=== PATIENT | male | born 1955 | race Caucasian/White ===

== ENCOUNTER → 2019-11-03 | Outpatient (CLI) | payer BC ==
--- NOTE | 2019-11-03 08:14 | US ---
EXAMINATION TYPE: US venous doppler duplex LE DATE OF EXAM: 11/03/2019 7:41 AM COMPARISON: NONE CLINICAL HISTORY: I80.299 Phlebitis Thrombophlebitis of lower extr. SIDE PERFORMED: Bilateral TECHNIQUE: The lower extremity deep venous system is examined utilizing real time linear array sonog rosalio with graded compression, doppler sonography and color-flow sonography. VESSELS IMAGED: External Iliac Vein (EIV) Common Femoral Vein Deep Femoral Vein Greater Saphenous Vein * Femoral Vein Popliteal Vein Small Saphenous Vein * Proximal Calf Veins (* superficial vessels) Grayscale, color doppler, spectral doppler imaging performed of the deep veins of the lower extremiti es. There is normal flow, compressibility, vascular waveforms. Right Leg: Negative for DVT Left Leg: Negative for DVT IMPRESSION: No sonographic evidence of deep venous thrombosis in either the visualized bilateral low er extremities.
== END | disposition home or self-care (01) ==
LOC: RADUSWWP 07:18
PROVIDERS: ATTEND Family Medicine
DX: I80.299 Phlebitis and thrombophlebitis of other deep vessels of unspecified lower extremity (principal)
CPT/HCPCS: 93970

== ENCOUNTER → 2022-09-14 | Outpatient (CLI) | payer MEDICARE, BC ==
[2022-09-14 13:42] LABS: African American GFR (CKD) >90 (>60 ml/min/1.73 sqM); Blood Urea Nitrogen 19 mg/dL (9-20); Non-African American GFR(CKD) >90 (>60 ml/min/1.73 sqM)
--- NOTE | 2022-09-14 14:54 | CT ---
EXAMINATION TYPE: CT angio thor/abd pel aorta CT DLP: 3045.0 mGycm, Automated exposure control for dose reduction was used. DATE OF EXAM: 09/14/2022 2:11 PM COMPARISON: CT chest abdomen pelvis 03/24/2013. CLINICAL INDICATION:Male, 66 years old with history of CAD; PHH, Follow up of aortic aneurysm TECHNIQUE: Dissection protocol: Multiple axial CT images of the chest, abdomen were obtained prior an d to the administration of IV contrast. 3-D reformats and maximum intensity projection format were pe rformed on a separate workstation. Contrast used:100 mL of Isovue 370 without and with IV Contrast, Oral contrast used: without Oral Contrast FINDINGS: ARTERIAL VASCULATURE: The aorta is normal in course. Ectasia of the ascending thoracic aorta measurin g up to 3.8 cm. No evidence of intramural hematoma. There is no evidence of aortic dissection, aneury sm or acute aortic injury. Great arch vessels patent and normal in course and caliber. No abdominal a ortic aneurysm. Mild atelectatic calcification of the abdominal aorta. The bilateral renal arteries a re widely patent. There are 2 right and left renal arteries. The SMA and celiac axis are patent. Mild stenosis of the origin of the celiac axis secondary to calcified plaque. PULMONARY ARTERIAL VASCULATURE: Mild dilated measuring 3.7 cm in diameter. This can be seen setting o f pulmonary arterial hypertension. No pulmonary embolism identified. Lungs/pleura: No pleural effusion, pneumothorax, or focal consolidation. Calcific granuloma within th e left upper lobe. Intrafissural lymph node along the right minor fissure stable and benign. Heart: Mildly prominent size. No pericardial effusion. Post CABG changes. Mediastinum: No gross evidence of adenopathy. Lower Neck: No significant findings. Abdomen: Liver: Unremarkable. Gallbladder and Bile ducts: Post cholecystectomy.. Pancreas: Unremarkable. Spleen: Unremarkable. Adrenal glands: Unremarkable. Kidneys and Ureters: Unremarkable. No hydronephrosis. Stomach and Bowel: Colonic diverticulosis without evidence for acute diverticulitis. No evidence of bowel obstruction. Peritoneum: No evidence of pneumoperitoneum, free fluid, or adenopathy. Abdominal wall/soft tissues: Bilateral gynecomastia partially visualized.. Musculoskeletal: The osseous structures appear intact. Median sternotomy wires. Multilevel degenerati ve changes of the visualized spine. IMPRESSION: 1. Stable ectasia of the ascending thoracic aorta measuring up to 3.8 cm. No abdominal aortic aneurys m. 2. Colonic diverticulosis without evidence for acute diverticulitis.
== END | disposition home or self-care (01) ==
LOC: RADCTMAIN 12:25
PROVIDERS: ATTEND Internal Medicine Cardiovascular Disease
DX: I25.10 Atherosclerotic heart disease of native coronary artery without angina pectoris (principal); K57.30 Diverticulosis of large intestine without perforation or abscess without bleeding; I77.810 Thoracic aortic ectasia
CPT/HCPCS: 82565; 84520; 71275; 36415; 74174; Q9967

== ENCOUNTER 2023-10-01 22:28 | Inpatient (IN) | payer MEDICARE, BC ==
--- NOTE | 2023-10-01 22:49 | ED ---
Chest Pain HPI - General Source: patient, RN notes reviewed Mode of arrival: wheelchair <Bala Stone - Last Filed: 10/01/23 22:49> - General Source: patient, RN notes reviewed, old records reviewed <Bernardino Posey - Last Filed: 10/02/23 03:15> - General Chief Complaint: Chest Pain Stated Complaint: chest pain Time Seen by Provider: 10/01/23 22:43 - History of Present Illness Initial Comments: 67-year-old male presents to the ED with chief complaint of chest pain. Patient reports an hour and a half ago while was eating dinner started to experience pain in the left side of his chest radiating to his left shoulder. Notes some associated nausea and sweating with this as well. (Bala Stone) Patient is a 67-year-old male with past medical history remarkable for CABG, diabetes, hypertension, hyperlipidemia, who is chronically on 2 L nasal cannula oxygen at home presents emergency department for chest pain. Also sounds like he has a history of CHF as he does require sleeping sitting upright at night. States that earlier today he began having sharp chest pain developed left side of his chest with radiation towards left shoulder and left jaw. This occurred approximately 2 hours ago. Has resolved at this point but required nitro to r esolve it. Has no other acute complaints at this time. States he felt diaphoretic when he was present. No nausea or vomiting. No abdominal pain. Endorses cough with no significant sputum. Endorses chronic orthopnea, PND. Has noticed worsening swelling in his bilateral lower extremities. Presents for further evaluation at this time. Originally seen as a quick note. I evaluated patient when he was placed in a room. (Bernardino Posey) - Related Data Allergies Allergy/AdvReac Type Severity Reaction Status Date / Time No Known Allergies Allergy Verified 10/01/23 22:35 Review of Systems ROS Other: All systems not noted in ROS Statement are negative. <Bala Stone - Last Filed: 10/01/23 22:49> ROS Other: All systems not noted in ROS Statement are negative. <Bernardino Posey - Last Filed: 10/02/23 03:15> ROS Statement: Those systems with pertinent positive or pertinent negative responses have been documented in the HPI. Review of Systems: CONST: Denies fever EYES: Denies blurry vision ENT: Denies nasal congestion C/V: Endorses resolved chest pain RESP: Denies shortness of breath GI: Denies abdominal pain : Denies dysuria SKIN: Denies rash. MSK: Denies joint pain. NEURO: Denies headache (Bernardino Posey) EKG Findings - EKG Comments: EKG Findings:: 12-lead Electrocardiogram Interpretation Note. EKG was reviewed and interpreted by myself. 12-lead ECG performed at 2239 is interpreted by me as revealing sinus bradycardia at a rate of 58 beats per minute. [place] is normal. MT interval is 161 ms, QRS duration is 86 ms, QTc is 418 ms.. There were no ST or T wave abnormalities to suggest myocardial ischemia or injury. R wave progression across the precordium was delayed. By my interpretation this EKG is non-diagnostic for acute ischemia. - EKG Results: EKG: interpreted by ERMD <Bernardino Posey - Last Filed: 10/02/23 03:15> Past Medical History Past Medical History: Coronary Artery Disease (CAD), Chest Pain / Angina, Diabetes Mellitus, Hyperlipidemia, Hypertension History of Any Multi-Drug Resistant Organisms: None Reported Past Surgical History: Cholecystectomy, Coronary Bypass/CABG Past Psychological History: No Psychological Hx Reported Smoking Status: Never smoker Past Alcohol Use History: None Reported Past Drug Use History: None Reported <Bala Stone - Last Filed: 10/01/23 22:49> General Exam <Bala Stone - Last Filed: 10/01/23 22:49> <Bernardino Posey - Last Filed: 10/02/23 03:15> - General Exam Comments Initial Comments: Visual Physical Exam Vital signs reviewed General: Well-appearing, nontoxic, no acute distress. Head: Normocephalic, atraumatic Eyes: PERRLA, EOMI ENT: Airway patent Chest: Nonlabored breathing Skin: No visual rash, normal skin tone Neuro: Alert and oriented 3 Musculoskeletal: No gross abnormalities (Bala Stone) General: Appears in no acute distress. HEAD: Normal with no signs of head trauma. EYES: PERRLA, EOMI, conjunctiva normal, no discharge. ENT: Hearing grossly intact, normal oropharynx. RESPIRATORY: Clear breath sounds bilaterally. No wheezes, rales, or rhonchi. On chronic 2 L nasal cannula oxygen. C/V: Regular rate and rhythm. S1 and S2 auscultated, significant lower extremity pitting edema, peripheral pulses 2+ and intact throughout ABD: Abd is soft, nontender, nondistended EXT: Normal range of motion, no obvious deformity SKIN: No rashes or lesions observed on exposed skin. NEURO: Alert and oriented x 4. (Bernardino Posey) Course Vital Signs 10/01/23 10/01/23 10/02/23 22:30 23:34 02:00 Temperature 99.8 F H 97.7 F Pulse Rate 66 60 Respiratory 18 20 Rate Blood Pressure 141/85 128/79 O2 Sat by Pulse 93 L 94 L Oximetry Chest Pain MDM <Bala Stone - Last Filed: 10/01/23 22:49> <Bernardino Posey - Last Filed: 10/02/23 03:15> - MDM Quicknote portion performed. Signed Bala Stone PA-C (Bala Stone) Was pt. sent in by a medical professional or institution (Dr. PA, ATHLETIC EQUIPMENT CUSTODIAN, urgent care, hospital, or fci...) When possible be specific @ -No Did you speak to anyone other than the patient for history (EMS, parent, family, police, friend...)? What history was obtained from this source @ -No Did you review nursing and triage notes (agree or disagree)? Why? @ -I reviewed and agree with nursing and triage notes Were old charts reviewed (outside hosp., previous admission, EMS record, old EKG, old radiological studies, urgent care reports/EKG's, fci records)? Report findings @ [place] reviewed Differential Diagnosis (chest pain, altered mental status, abdominal pain women, abdominal pain men, vaginal bleeding, weakness, fever, dyspnea, syncope, headache, dizziness, GI bleed, back pain, seizure, CVA, palpatations, mental health, musculoskeletal)? @ -Differential Chest Pain: Stable Angina, Unstable Angina, STEMI, NSTEMI Aortic Dissection, Pneumothorax, Musculoskeletal, Esophageal Spasm GERD, Cholecystitis, Pancreatitis, Zoster, this is not meant to be an all-inclusive list. EKG interpreted by me (3pts min.). @ -As above X-rays interpreted by me (1pt min.). @ -X-ray shows no obvious acute cardiopulmonary process. CT interpreted by me (1pt min.). @ -None done U/S interpreted by me (1pt. min.). @ -None done What testing was considered but not performed or refused? (CT, X-rays, U/S, labs)? Why? @ -None What meds were considered but not given or refused? Why? @ -None Did you discuss the management of the patient with other professionals (professionals i.e. DrSonia, PA, ATHLETIC EQUIPMENT CUSTODIAN, lab, RT, psych nurse, social work assistant, processing operator, teacher, corporate ethics officer, case management coordinator)? Give summary @ - I spoke with admitting team, MERVIN Mcelroy of [facility] who accepted the admission. Was smoking cessation discussed for >3mins.? @ -No Was critical care preformed (if so, how long)? @ -No Were there social determinants of health that impacted care today? How? (Homelessness, low income, unemployed, alcoholism, drug addiction, transportation, low edu. Level, literacy, decrease access to med. care, [facility], rehab)? @ -No Was there de-escalation of care discussed even if they declined (Discuss DNR or withdrawal of care, Hospice)? DNR status @ -No What co-morbidities impacted this encounter? (DM, HTN, Smoking, COPD, CAD, Cancer, CVA, ARF, Chemo, Hep., AIDS, mental health diagnosis, sleep apnea, morbid obesity)? @ -Coronary bypass surgery, CAD, chronic hypoxic respiratory failure, hypertension, hyperlipidemia Was patient admitted / discharged? Hospital course, mention meds given and route, prescriptions, significant lab abnormalities, going to OR and other pertinent info. @ -Based on the patient's presentation and physical exam, presents emergency department complaining of chest pain. Somewhat typical in nature. Currently asymptomatic. Resolved with nitro at home. He will be given 324 mg of aspirin as well as placed on Nitropaste. Discussed with the patient that he will likely be admitted. Is not on blood thinners. Patient also has signs and symptoms consistent with CHF and possible exacerbation as patient has worsening lower extremity edema. He expressed understanding. Current vital signs are within acceptable limits on his normal 2 L nasal cannula oxygen. EKG shows no signs of acute ischemia.Chest x-ray reveals no obvious acute cardiopulmonary process. Laboratory studies remarkable for hypokalemia and hypomagnesemia, both of which are replenished. Troponin is undetectable. BNP within normal limits. I did the patient. He remains pain-free. He will be admitted for troponin trending and evaluation by cardiology. Heart score is moderate. patient was in agreement this plan. I spoke with admitting team, MERVIN Mcelroy of [facility] who accepted the admission. Undiagnosed new problem with uncertain prognosis? @ -No Drug Therapy requiring intensive monitoring for toxicity (Heparin, Nitro, Insulin, Cardizem)? @ -No Were any procedures done? @ -No Diagnosis/symptom? @ -Chest pain Acute, or Chronic, or Acute on Chronic? @ -Acute Uncomplicated (without systemic symptoms) or Complicated (systemic symptoms)? @ -Complicated Side effects of treatment? @ -None Exacerbation, Progression, or Severe Exacerbation] @ -No Poses a threat to life or bodily function? @ -Yes (Bernardino Posey) Disposition <Bala Stone - Last Filed: 10/01/23 22:49> Time of Disposition: 00:22 <Bernardino Posey - Last Filed: 10/02/23 03:15> Clinical Impression: Chest pain Disposition: ADMITTED IP TO THIS HOSP Condition: Stable
[2023-10-01 23:02] LABS: Basophils % (A) 0 %; Eosinophils # (A) 0.3 k/uL (0-0.7); Eosinophils % (A) 3 %; HCT 45.6 % (39.0-53.0); HGB 14.7 gm/dL (13.0-17.5); Lymphocytes # (A) 1.9 k/uL (1.0-4.8); Lymphocytes % (A) 22 %; MCH 29.9 pg (25.0-35.0); MCHC 32.2 g/dL (31.0-37.0); MCV 92.7 fL (80.0-100.0); Mean Platelet Volume 7.6; Monocytes # (A) 0.5 k/uL (0-1.0); Monocytes % (A) 6 %; Neutrophils # (A) 5.6 k/uL (1.3-7.7); Neutrophils % (A) 67 %; Platelet Count 240 k/uL (150-450); RBC 4.92 m/uL (4.30-5.90); WBC 8.4 k/uL (3.8-10.6)
[2023-10-01 23:13] LABS: INR 1.1 (<1.2); Partial Thromboplastin Time 25.8 sec (22.0-30.0); Prothrombin Time 11.6 sec (10.0-12.5)
[2023-10-01] MEDS: ASPIRIN 81 MG PO STA (23:19)
[2023-10-01] MEDS: NITROGLYCERIN OINT 1 INCH/GM PACKET TOPICAL SCH (23:20)
[2023-10-01 23:27] LABS: ALT 26 U/L (4-49); AST 28 U/L (17-59); African American GFR (CKD) >90 (>60 ml/min/1.73 sqM); Albumin 4.3 g/dL (3.5-5.0); Alkaline Phosphatase 78 U/L (38-126); Anion Gap 6 mmol/L; Blood Urea Nitrogen 17 mg/dL (9-20); Calcium 9.3 mg/dL (8.4-10.2); Carbon Dioxide 40 mmol/L (22-30); Chloride 92 mmol/L (98-107); Glucose 127 mg/dL (74-99); Magnesium 1.3 mg/dL (1.6-2.3); Non-African American GFR(CKD) 89 (>60 ml/min/1.73 sqM); Potassium 3.3 mmol/L (3.5-5.1); Sodium 138 mmol/L (137-145); Total Protein 7.4 g/dL (6.3-8.2)
[2023-10-01] MEDS: ACETAMINOPHEN TAB 500 MG TAB PO STA (23:30)
[2023-10-01 23:56] LABS: Appearance,Urine Clear (Clear); Bilirubin,Urine Negative (Negative); Blood,Urine Negative (Negative); Color,Urine Yellow; Glucose,Urine (UA) 4+ (Negative); Ketones,Urine Negative (Negative); Leukocyte Esterase,Urine Negative (Negative); Nitrite,Urine Negative (Negative); Protein,Urine Trace (Negative); Specific Gravity,Urine 1.022 (1.001-1.035)
[2023-10-02] MEDS: POTASSIUM CHLORIDE ER 20 MEQ TAB.ER PO STA ×2 (00:08→13:29)
[2023-10-02] MEDS: MAGNESIUM SULFATE-D5W PMX 1 GM in DEXTROSE/WATER 1 100ML.BAG IVPB ONE (00:08)
--- NOTE | 2023-10-02 00:17 | XR ---
EXAM: XR Chest, 2 Views CLINICAL HISTORY: ITS.REASON XR Reason: Chest Pain TECHNIQUE: Frontal and lateral views of the chest. COMPARISON: No relevant prior studies available. FINDINGS: Lungs: Unremarkable. No consolidation. Pleural space: Unremarkable. No pneumothorax. Heart: Unremarkable. No cardiomegaly. Mediastinum: Unremarkable. Normal mediastinal contour. Bones/joints: Sternotomy wires. No acute fracture. IMPRESSION: No acute findings in the chest.
[2023-10-02] MEDS ORDERED: NALOXONE 0.4 MG/ML 1 ML VIAL IV PRN (00:22)
[2023-10-02] MEDS ORDERED: CAFFEINE CITRATE 60 MG/3 ML VIAL IV PRN (08:23)
[2023-10-02] MEDS ORDERED: AMINOPHYLLINE 500 MG/20 ML VIAL IV PRN (08:23)
[2023-10-02] MEDS ORDERED: REGADENOSON 0.4 MG/5 ML SYRINGE IV PRN (08:23)
--- NOTE | 2023-10-02 11:17 | P.CRDCN ---
History of Present Illness Consult date: 10/02/23 Consult reason: chest pain History of present illness: History of present illness: This is a 67-year-old male patient of Dr. EN Sweet with past medical history of coronary artery disease status post bypass grafting, hypertension, hyperlipidemia, diabetes mellitus, obesity. We have been asked to evaluate the patient for chest pain. Patient states that he developed chest pain what he thought was more like indigestion along with shortness of breath and had cold sweats. He also had some dizziness with this. He states that it started after he was cooking dinner and lasted about 1 to 2 minutes and kept returning. He did try to take 1 nitroglycerin. He states he did have some shoulder pain bilaterally. He denies smoking. Patient is seen today in the emergency center waiting for bed on the observation unit. Magnesium and potassium were replaced in the emergency center. EKG sinus rhythm with no acute ST changes. Chest x-ray: No acute findings CBC, INR within normal limits. Troponin negative x 3. Potassium 3.3, magnesium 1.3. Influenza A, influenza B, RSV, COVID-19 not detected. Home cardiac medications: Aspirin 325 mg at bedtime, Jardiance 10 mg daily, Vasotec 2.5 mg daily, Lasix 40 mg daily, Imdur 60 mg daily, metolazone 2.5 mg daily, Lopressor 50 mg twice daily, omega-3 1 capsule at bedtime, potassium chloride 10 mill equivalents daily, simvastatin 20 mg at bedtime. Cardiac catheterization in 12/22/2021 revealed normal LV systolic function, high- grade ostial LAD with a fairly decent distal vessel. Circumflex is large caliber. No significant stenosis. RCA none dominant vessel. Cardiovascular surgery 12/2021 CABG with HALL to LAD. Echocardiogram performed 07/12/2022 in the office revealed EF 50 to 55%. Mild maru ral regurgitation. Mild tricuspid regurgitation. Normal pulmonary artery systolic pressure 32 mmHg. Lexiscan Cardiolite stress test performed 07/12/2022 revealed inconclusive Lexiscan stress test by EKG criteria due to resting EKG changes. Abnormal MPI with distal anterior apical fixed defect with minimal hypokinesia and preserved EF but no evidence of any significant stress-induced ischemia. Review Of Systems: At the time of my exam: CONSTITUTIONAL: Denies fever or chills. HEENT: Denies blurred vision, vision changes, or eye pain. Denies hemoptysis CARDIOVASCULAR: Denies chest pain. Denies orthopnea. Denies PND. Denies palpitations RESPIRATORY: Denies shortness of breath. GASTROINTESTINAL: Denies abdominal pain. Denies nausea or vomiting. HEMATOLOGIC: Denies bleeding disorders. GENITOURINARY: Denies any blood in urine. SKIN: Denies pruitis. Denies rash. Physical examination: Gen: This is a morbidly obese 67-year-old male in no acute distress. VS: reviewed HEENT: Head is atraumatic, normocephalic. Pupils equal, round. Sclerae is anicteric. NECK: Supple. No JVD. LUNGS: Mild expiratory wheeze. No intercostal retractions. HEART: Regular rate and rhythm. No murmur. ABDOMEN: Soft No tenderness. EXTREMITIES: No pedal edema. No calf tenderness. NEUROLOGICAL: Patient is awake, alert and oriented x3. Assessment: Atypical chest pain, acute coronary syndrome ruled out Electrolyte abnormalities with hypomagnesemia and hypokalemia status post replacement History of coronary artery disease with previous CABG HALL to LAD Hypertension Hyperlipidemia Diabetes mellitus Morbid obesity Plan: Resume patient's home cardiac medications Schedule patient for Lexiscan stress test today Obtain 2-D echocardiogram and Doppler study to assess cardiac structure and function If above testing is unremarkable, patient is cleared for discharge and may follow-up in the office with Dr. Sweet in 1 to 2 weeks. Thank you kindly for this consultation. Nurse practitioner note has been reviewed, I agree with documented findings and plan of care. Patient was seen and examined. Past Medical History Past Medical History: Coronary Artery Disease (CAD), Chest Pain / Angina, Diabetes Mellitus, Hyperlipidemia, Hypertension History of Any Multi-Drug Resistant Organisms: None Reported Past Surgical History: Cholecystectomy, Coronary Bypass/CABG Past Psychological History: No Psychological Hx Reported Smoking Status: Never smoker Past Alcohol Use History: None Reported Past Drug Use History: None Reported Medications and Allergies Home Medications Medication Instructions Recorded Confirmed Type Albuterol Inhaler [Ventolin Hfa 1 - 2 puff INHALATION RT-Q6H PRN 10/02/23 10/02/23 History Inhaler] Aspirin 325 mg PO HS 10/02/23 10/02/23 History Cetirizine HCl [Zyrtec] 10 mg PO BID 10/02/23 10/02/23 History Cyanocobalamin (Vitamin B-12) 1,000 mcg PO DAILY 10/02/23 10/02/23 History [Vitamin B-12] Empagliflozin [Jardiance] 10 mg PO DAILY 10/02/23 10/02/23 History Enalapril [Vasotec] 2.5 mg PO DAILY 10/02/23 10/02/23 History Fluticasone Nasal [place] [Flonase 1 - 2 spray EA NOSTRIL DAILY PRN 10/02/23 10/02/23 History Nasal [place]] Furosemide [Lasix] 40 mg PO DAILY 10/02/23 10/02/23 History Isosorbide Mononitrate ER [Imdur] 60 mg PO DAILY 10/02/23 10/02/23 History Metoprolol Tartrate [Lopressor] 50 mg PO BID 10/02/23 10/02/23 History Multivit-Min/FA/Lycopen/Lutein 1 tab PO 10/02/23 10/02/23 History [Centrum Silver Tablet] [place]-3/Dha/Epa/Fish Oil [Fish Oil 1 cap PO HS 10/02/23 10/02/23 History 1,000 mg Softgel] PARoxetine HCL [Paxil] 10 mg PO HS 10/02/23 10/02/23 History Potassium Chloride ER [K-Dur 10] 10 meq PO DAILY 10/02/23 10/02/23 History Simvastatin [Zocor] 20 mg PO HS 10/02/23 10/02/23 History metFORMIN HCL [Glucophage] 1,000 mg PO BID 10/02/23 10/02/23 History metOLazone 2.5 mg PO DAILY 10/02/23 10/02/23 History Allergies Allergy/AdvReac Type Severity Reaction Status Date / Time No Known Allergies Allergy Verified 10/02/23 06:55 Physical Exam Vitals: Vital Signs Temp Pulse Resp BP Pulse Ox 10/02/23 08:18 98 10/02/23 06:35 81 18 142/75 98 10/02/23 03:42 60 18 135/72 96 10/02/23 02:00 97.7 F 10/01/23 23:34 60 20 128/79 94 L 10/01/23 22:30 99.8 F H 66 18 141/85 93 L Intake and Output 10/01/23 10/02/23 10/02/23 22:59 06:59 14:59 Other: Weight 144.242 kg Results 10/01/23 22:45 10/01/23 22:45 Cardiac Enzymes 10/01/23 10/01/23 10/02/23 Range/Units 22:45 22:45 03:36 AST 28 (17-59) U/L Troponin I <0.012 <0.012 (0.000-0.034) ng/mL 10/02/23 Range/Units 06:34 AST (17-59) U/L Troponin I <0.012 (0.000-0.034) ng/mL Coagulation 10/01/23 Range/Units 22:45 PT 11.6 (10.0-12.5) sec APTT 25.8 (22.0-30.0) sec CBC 10/01/23 Range/Units 22:45 WBC 8.4 (3.8-10.6) k/uL RBC 4.92 (4.30-5.90) m/uL Hgb 14.7 (13.0-17.5) gm/dL Hct 45.6 (39.0-53.0) % Plt Count 240 (150-450) k/uL Comprehensive Metabolic Panel 10/01/23 Range/Units 22:45 Sodium 138 (137-145) mmol/L Potassium 3.3 L (3.5-5.1) mmol/L Chloride 92 L (98-107) mmol/L Carbon Dioxide 40 H (22-30) mmol/L BUN 17 (9-20) mg/dL Creatinine 0.89 (0.66-1.25) mg/dL Glucose 127 H (74-99) mg/dL Calcium 9.3 (8.4-10.2) mg/dL AST 28 (17-59) U/L ALT 26 (4-49) U/L Alkaline Phosphatase 78 (38-126) U/L Total Protein 7.4 (6.3-8.2) g/dL Albumin 4.3 (3.5-5.0) g/dL Current Medications Generic Name Dose Route Start Last Admin Trade Name Freq PRN Reason Stop Dose Admin Acetaminophen 650 mg 10/02/23 00:22 Acetaminophen Tab 325 Mg Tab PO Q6HR PRN Mild Pain or Fever > 100.5 Aminophylline 100 mg 10/02/23 08:23 Aminophylline 500 Mg/20 Ml Vial IV 10/02/23 12:23 ONCE PRN Patient Response Aspirin 325 mg 10/02/23 09:00 Aspirin 325 Mg Tab PO DAILY [facility] Caffeine Citrate 60 mg 10/02/23 08:23 Caffeine Citrate 60 Mg/3 Ml Vial IV 10/02/23 12:23 ONCE PRN Patient Response Furosemide 40 mg 10/02/23 09:00 Furosemide 10 Mg/Ml 4 Ml Vial IV DAILY [facility] Heparin Sodium (Porcine) 5,000 unit 10/02/23 08:00 Heparin Sodium,Porcine 5,000 Unit/Ml 1 Ml Vial SQ Q8HR [facility] Isosorbide Mononitrate 60 mg 10/02/23 09:00 Isosorbide Mononitrate Er 60 Mg Tab.Er.24h PO DAILY [facility] Metformin HCl 1,000 mg 10/02/23 07:30 Metformin 500 Mg Tab PO BID-W/MEALS [facility] Metolazone 2.5 mg 10/02/23 09:00 Metolazone 2.5 Mg Tab PO DAILY [facility] Metoprolol Tartrate 50 mg 10/02/23 09:00 Metoprolol Tartrate 50 Mg Tab PO BID [facility] Naloxone HCl 0.2 mg 10/02/23 00:22 Naloxone 0.4 Mg/Ml 1 Ml Vial IV Q2M PRN Opioid Reversal Nitroglycerin 0.5 inch 10/01/23 23:16 10/01/23 23:20 Nitroglycerin Oint 1 Inch/Gm Packet TOPICAL 0.5 inch Q8HR [facility] Administration Ondansetron HCl 4 mg 10/02/23 00:22 Ondansetron 4 Mg/2 Ml Vial IVP Q8HR PRN Nausea And Vomiting Paroxetine HCl 10 mg 10/02/23 09:00 Paroxetine 10 Mg Tab PO DAILY [facility] Regadenoson 0.4 mg 10/02/23 08:23 Regadenoson 0.4 Mg/5 Ml Syringe IV 10/02/23 12:23 ONCE PRN Per Protocol Intake and Output 10/01/23 10/02/23 10/02/23 22:59 06:59 14:59 Other: Weight 144.242 kg 10/01/23 22:45 10/01/23 22:45
[2023-10-02] MEDS: metFORMIN 500 MG TAB PO SCH (12:02)
[2023-10-02] MEDS: HEPARIN SODIUM,PORCINE 5,000 UNIT/ML 1 ML VIAL SQ SCH (12:02)
[2023-10-02] MEDS: PARoxetine 10 MG TAB PO SCH (12:03)
[2023-10-02] MEDS: ASPIRIN 325 MG TAB PO SCH (12:03)
[2023-10-02] MEDS: METOPROLOL TARTRATE 50 MG TAB PO SCH (12:04)
[2023-10-02] MEDS: ISOSORBIDE MONONITRATE ER 60 MG TAB.ER.24H PO SCH (12:04)
[2023-10-02] MEDS: FUROSEMIDE 10 MG/ML 4 ML VIAL IV SCH (12:05)
[2023-10-02] MEDS: metOLazone 2.5 MG TAB PO SCH (12:06)
--- NOTE | 2023-10-02 12:23 | P.HPIM ---
History of Present Illness Patient pleasant 61-year-old male came in with complaints of chest pressure-like sensation which felt like mostly indigestion along with some shortness of breath and cold sweats which lasted for few minutes and his pain is in the retrosternal epigastric area lasted for few hours. Patient was eval by cardiology patient did undergo stress test and the recommendation is a stress testing to patient can be discharged. Workup here is as follows EKG did not show any acute ST-T wave changes chest x-ray no significant abnormality troponins are negative, patient has low magnesium and low potassium which were partially replaced. Patient takes metolazone and Lasix patient does have some edema which is mostly nonpitting in bilateral lower extremities he had a normal ejection fraction in the past pulmonary systolic pressures 32 mmHg without significant valvular abnormalities except for some mild regurgitation. REVIEW OF SYSTEMS: CONSTITUTIONAL: No fever, no malaise, no fatigue. HEENT: No recent visual problems or hearing problems. Denied any sore throat. CARDIOVASCULAR: No chest pain, orthopnea, PND, no palpitations, no syncope. PULMONARY: Bilateral lower extremity mostly nonpitting pedal edema no cough, no hemoptysis. GASTROINTESTINAL: No diarrhea, no nausea, no vomiting, no abdominal pain. NEUROLOGICAL: No headaches, no weakness, no numbness. HEMATOLOGICAL: Denies any bleeding or petechiae. GENITOURINARY: Denies any burning micturition, frequency, or urgency. MUSCULOSKELETAL/RHEUMATOLOGICAL: Denies any joint pain, swelling, or any muscle pain. ENDOCRINE: Denies any polyuria or polydipsia. The rest of the 14-point review of systems is negative. PHYSICAL EXAMINATION: GENERAL: The patient is alert and oriented x3, not in any acute distress. Well developed, well nourished. HEENT: Pupils are round and equally reacting to light. EOMI. No scleral icterus. No conjunctival pallor. Normocephalic, atraumatic. No pharyngeal erythema. No thyromegaly. CARDIOVASCULAR: S1 and S2 present. No murmurs, rubs, or gallops. PULMONARY: Chest is clear to auscultation, no wheezing or crackles. ABDOMEN: Soft, nontender, nondistended, normoactive bowel sounds. No palpable organomegaly. MUSCULOSKELETAL: No joint swelling or deformity. EXTREMITIES: No cyanosis, clubbing, bilateral lower extremity mostly nonpitting pedal edema NEUROLOGICAL: Gross neurological examination did not reveal any focal deficits. SKIN: No rashes. Assessment and plan -Chest pain rule out acute coronary syndromes patient underwent stress test if that is negative patient will be discharged. Patient may have mild gastroesophageal reflux disease will give proton pump inhibitor for a week. -Coronary artery disease status post CABG patient will be resumed on home medications for this -Bilateral lower extremity edema patient does not have any pulmonary edema chest x-ray is within normal limits BNP is only 156 patient may have some peripheral venous insufficiency as Lasix is not affecting his kidney he can continue his home dose of diuretics that his Lasix and metolazone but will need potassium to placement on regular basis and basic metabolic profile to be tested as an outpatient. -Hypertension -Hyperlipidemia -Obesity and patient is O2 dependent patient denies any history of COPD but uses 2 L of oxygen on daily basis need to outpatient sleep apnea testing -Type 2 diabetes mellitus Patient will be discharged today if stress test is negative Past Medical History Past Medical History: Coronary Artery Disease (CAD), Chest Pain / Angina, Diabetes Mellitus, Hyperlipidemia, Hypertension History of Any Multi-Drug Resistant Organisms: None Reported Past Surgical History: Cholecystectomy, Coronary Bypass/CABG Past Psychological History: No Psychological Hx Reported Smoking Status: Never smoker Past Alcohol Use History: None Reported Past Drug Use History: None Reported Medications and Allergies Home Medications Medication Instructions Recorded Confirmed Type Albuterol Inhaler [Ventolin Hfa 1 - 2 puff INHALATION RT-Q6H PRN 10/02/23 10/02/23 History Inhaler] Aspirin 325 mg PO HS 10/02/23 10/02/23 History Cetirizine HCl [Zyrtec] 10 mg PO BID 10/02/23 10/02/23 History Cyanocobalamin (Vitamin B-12) 1,000 mcg PO DAILY 10/02/23 10/02/23 History [Vitamin B-12] Empagliflozin [Jardiance] 10 mg PO DAILY 10/02/23 10/02/23 History Enalapril [Vasotec] 2.5 mg PO DAILY 10/02/23 10/02/23 History Fluticasone Nasal [place] [Flonase 1 - 2 spray EA NOSTRIL DAILY PRN 10/02/23 10/02/23 History Nasal [place]] Furosemide [Lasix] 40 mg PO DAILY 10/02/23 10/02/23 History Isosorbide Mononitrate ER [Imdur] 60 mg PO DAILY 10/02/23 10/02/23 History Metoprolol Tartrate [Lopressor] 50 mg PO BID 10/02/23 10/02/23 History Multivit-Min/FA/Lycopen/Lutein 1 tab PO HS 10/02/23 10/02/23 History [Centrum Silver Tablet] [place]-3/Dha/Epa/Fish Oil [Fish Oil 1 cap PO HS 10/02/23 10/02/23 History 1,000 mg Softgel] PARoxetine HCL [Paxil] 10 mg PO HS 10/02/23 10/02/23 History Potassium Chloride ER [K-Dur 10] 10 meq PO DAILY 10/02/23 10/02/23 History Simvastatin [Zocor] 20 mg PO HS 10/02/23 10/02/23 History metFORMIN HCL [Glucophage] 1,000 mg PO BID 10/02/23 10/02/23 History metOLazone 2.5 mg PO DAILY 10/02/23 10/02/23 History Allergies Allergy/AdvReac Type Severity Reaction Status Date / Time No Known Allergies Allergy Verified 10/02/23 06:55 Physical Exam Vitals: Vital Signs Temp Pulse Resp BP Pulse Ox 10/02/23 08:18 98 10/02/23 06:35 81 18 142/75 98 10/02/23 03:42 60 18 135/72 96 10/02/23 02:00 97.7 F 10/01/23 23:34 60 20 128/79 94 L 10/01/23 22:30 99.8 F H 66 18 141/85 93 L Intake and Output 10/01/23 10/02/23 10/02/23 22:59 06:59 14:59 Other: Weight 144.242 kg Results CBC & Chem 7: 10/01/23 22:45 10/01/23 22:45 Labs: Abnormal Lab Results - Last 24 Hours (Table) 10/01/23 10/01/23 Range/Units 22:45 23:46 Potassium 3.3 L (3.5-5.1) mmol/L Chloride 92 L (98-107) mmol/L Carbon Dioxide 40 H (22-30) mmol/L Glucose 127 H (74-99) mg/dL Magnesium 1.3 L (1.6-2.3) mg/dL Urine Protein Trace H (Negative) Urine Glucose (UA) 4+ H (Negative)
--- NOTE | 2023-10-02 12:28 | P.DS ---
Providers Date of admission: 10/02/23 00:23 Attending physician: Willy York Consults: 10/02/23 00:22 Consult Physician Routine Consulting Provider: [facility] Consult Reason/Comments: chest pain Do you want consulting provider notified?: Yes Primary care physician: Lety Gallardo MD Hospital Course: Patient pleasant 61-year-old male came in with complaints of chest pressure-like sensation which felt like mostly indigestion along with some shortness of breath and cold sweats which lasted for few minutes and his pain is in the retrosternal epigastric area lasted for few hours. Patient was eval by cardiology patient did undergo stress test and the recommendation is a stress testing to patient can be discharged. Workup here is as follows EKG did not show any acute ST-T w ave changes chest x-ray no significant abnormality troponins are negative, patient has low magnesium and low potassium which were partially replaced. Patient takes metolazone and Lasix patient does have some edema which is mostly nonpitting in bilateral lower extremities he had a normal ejection fraction in the past pulmonary systolic pressures 32 mmHg without significant valvular abnormalities except for some mild regurgitation. PHYSICAL EXAMINATION: GENERAL: The patient is alert and oriented x3, not in any acute distress. Well developed, well nourished. HEENT: Pupils are round and equally reacting to light. EOMI. No scleral icterus. No conjunctival pallor. Normocephalic, atraumatic. No pharyngeal erythema. No thyromegaly. CARDIOVASCULAR: S1 and S2 present. No murmurs, rubs, or gallops. PULMONARY: Chest is clear to auscultation, no wheezing or crackles. ABDOMEN: Soft, nontender, nondistended, normoactive bowel sounds. No palpable organomegaly. MUSCULOSKELETAL: No joint swelling or deformity. EXTREMITIES: No cyanosis, clubbing, bilateral lower extremity mostly nonpitting pedal edema NEUROLOGICAL: Gross neurological examination did not reveal any focal deficits. SKIN: No rashes. Assessment and plan -Chest pain rule out acute coronary syndromes patient underwent stress test if that is negative patient will be discharged. Patient may have mild gastroesophageal reflux disease will give proton pump inhibitor for a week. -Coronary artery disease status post CABG patient will be resumed on home medications for this -Bilateral lower extremity edema patient does not have any pulmonary edema chest x-ray is within normal limits BNP is only 156 patient may have some peripheral venous insufficiency as Lasix is not affecting his kidney he can continue his home dose of diuretics that his Lasix and metolazone but will need potassium to placement on regular basis and basic metabolic profile to be tested as an outpatient. -Hypertension -Hyperlipidemia -Obesity and patient is O2 dependent patient denies any history of COPD but uses 2 L of oxygen on daily basis need to outpatient sleep apnea testing -Type 2 diabetes mellitus Patient will be discharged today if stress test is negative Patient Condition at Discharge: Stable Plan - Discharge Summary New Discharge Prescriptions: New Pantoprazole Sodium [Protonix] 20 mg PO AC-BID #14 tab Continue Cetirizine HCl [Zyrtec] 10 mg PO BID [place]-3/Dha/Epa/Fish Oil [Fish Oil 1,000 mg Softgel] 1 cap PO HS Aspirin 325 mg PO HS Metoprolol Tartrate [Lopressor] 50 mg PO BID Enalapril [Vasotec] 2.5 mg PO DAILY Multivit-Min/FA/Lycopen/Lutein [Centrum Silver Tablet] 1 tab PO HS Cyanocobalamin (Vitamin B-12) [Vitamin B-12] 1,000 mcg PO DAILY metFORMIN HCL [Glucophage] 1,000 mg PO BID PARoxetine HCL [Paxil] 10 mg PO HS metOLazone 2.5 mg PO DAILY Simvastatin [Zocor] 20 mg PO HS Isosorbide Mononitrate ER [Imdur] 60 mg PO DAILY Furosemide [Lasix] 40 mg PO DAILY Empagliflozin [Jardiance] 10 mg PO DAILY Fluticasone Nasal [place] [Flonase Nasal [place]] 1 - 2 spray EA NOSTRIL DAILY PRN PRN Reason: Congestion Albuterol Inhaler [Ventolin Hfa Inhaler] 1 - 2 puff INHALATION RT-Q6H PRN PRN Reason: Shortness Of Breath Changed Potassium Chloride ER [K-Dur 10] 20 meq PO DAILY #60 tab Discharge Medication List Albuterol Inhaler [Ventolin Hfa Inhaler] 1 - 2 puff INHALATION RT-Q6H PRN 10/02/23 [History] Aspirin 325 mg PO HS 10/02/23 [History] Cetirizine HCl [Zyrtec] 10 mg PO BID 10/02/23 [History] Cyanocobalamin (Vitamin B-12) [Vitamin B-12] 1,000 mcg PO DAILY 10/02/23 [History] Empagliflozin [Jardiance] 10 mg PO DAILY 10/02/23 [History] Enalapril [Vasotec] 2.5 mg PO DAILY 10/02/23 [History] Fluticasone Nasal [place] [Flonase Nasal [place]] 1 - 2 spray EA NOSTRIL DAILY PRN 10/02/23 [History] Furosemide [Lasix] 40 mg PO DAILY 10/02/23 [History] Isosorbide Mononitrate ER [Imdur] 60 mg PO DAILY 10/02/23 [History] Metoprolol Tartrate [Lopressor] 50 mg PO BID 10/02/23 [History] Multivit-Min/FA/Lycopen/Lutein [Centrum Silver Tablet] 1 tab PO HS 10/02/23 [History] [place]-3/Dha/Epa/Fish Oil [Fish Oil 1,000 mg Softgel] 1 cap PO HS 10/02/23 [History] PARoxetine HCL [Paxil] 10 mg PO HS 10/02/23 [History] Pantoprazole Sodium [Protonix] 20 mg PO AC-BID #14 tab 10/02/23 [Rx] Potassium Chloride ER [K-Dur 10] 20 meq PO DAILY #60 tab 10/02/23 [Rx] Simvastatin [Zocor] 20 mg PO HS 10/02/23 [History] metFORMIN HCL [Glucophage] 1,000 mg PO BID 10/02/23 [History] metOLazone 2.5 mg PO DAILY 10/02/23 [History] Follow up Appointment(s)/Referral(s): Lety Gallardo MD [Primary Care Provider] - 3 Days Ambulatory/Diagnostic Orders: Basic Metabolic Panel [LAB.AMB] Time Frame: 3 Days, Location: None Selected Magnesium [LAB.AMB] Time Frame: 3 Days, Location: None Selected Discharge Disposition: HOME SELF-CARE
--- NOTE | 2023-10-02 12:45 | NM ---
EXAMINATION TYPE: NM stress lexiscan cardiolite DATE OF EXAM: 10/02/2023 COMPARISON: NONE CLINICAL INDICATION: Male, 67 years old with history of chest pain; TECHNIQUE: After the intravenous administration of 10.9 mCi Tc 99m Sestamibi - Cardiolite resting SP ECT images acquired 60 minutes post injection. The patient received 0.4mg Lexiscan, 26.1 mCi Tc 99m Sestamibi - Stress images obtained [address] injection FINDINGS: Review of stress and rest SPECT images demonstrates a predominantly fixed defect involving the apex o f the myocardium and inferolateral myocardial wall. Small area of stress-induced reversibility within the apex not excluded. Corresponding reduced wall motion activity. Gated analysis shows an estimate d left ventricular ejection fraction of 70 %. IMPRESSION: Predominantly affects defects with corresponding wall motion abnormality. Tiny area of st ress-induced reversible ischemia involving the apex is not excluded correlate clinically.
[2023-10-02] MEDS ORDERED: ALPRAZolam 0.5 MG TAB PO PRN (13:14)
[2023-10-02] MEDS ORDERED: NITROGLYCERIN SL TABS 0.4 MG TAB SUBLINGUAL PRN (13:14)
[2023-10-02] MEDS ORDERED: ALPRAZolam 0.25 MG TAB PO PRN (13:14)
[2023-10-02] MEDS: MAGNESIUM SULFATE-D5W PMX 1 GM in DEXTROSE/WATER 1 100ML.BAG IVPB SCH (13:28)
[2023-10-02] MEDS: SODIUM CHLORIDE 0.9% 1,000 ML IV SCH (21:52)
[2023-10-03] MEDS: ATORVASTATIN 80 MG TAB PO ONE (06:08)
[2023-10-03] MEDS: ASPIRIN 325 MG TAB PO ONE (06:08)
[2023-10-03 06:48] LABS: Glucose,Whole Blood 142 mg/dL (70-110)
--- NOTE | 2023-10-03 06:55 | CA ---
Transthoracic Echo Report Name: Pankaj Calvin Age: 67 Gender: M : 1955 Exam Date: 10/02/2023 14:06 Exam Location: [place] Echo Ht (in): 72 Wt (lb): 318 Ordering Physician: Bernardino Posey MD Attending/Referring Phys: Cover Marker Denise Lopez RDCS Procedure CPT: Indications: Chest Pain Cardiac Hx: Technical Quality: Very technically difficult study Contrast 1: Definity Total Dose (mL): 2 Contrast 2: Total Dose (mL): MEASUREMENTS (Male / Female) Normal Values 2D ECHO LA Volume 83.4 cm??? 18 - 58 / 22 - 52 cm??? LA Volume Index 30.1 cm???/m??? 16 - 28 cm???/m??? M-MODE Aortic Root Diameter MM 3.6 cm LA Systolic Diameter MM 4.2 cm LA Ao Ratio MM 1.2 DOPPLER MV Area PHT 2.2 cm??? 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 Unable to estimate the right ventricular systolic pressure. Right Atrium Mild right atrial dilatation. Left Atrium Mildly increased left atrial volume. Mildly increased left atrial area. Mitral Valve Mitral valve not well visualized. Structurally normal mitral valve. Trace mitral regurgitation. Aortic Valve Aortic valve not well visualized. Tricuspid Valve Tricuspid valve not well visualized. Pulmonic Valve Pulmonic valve not well visualized. Pericardium No pericardial or pleural effusion. Aorta Aorta at upper limits of normal. CONCLUSIONS Technically difficult study in spite of using Definity Normal LV systolic function Poorly visualized intracardiac valves Previewed by: Dr. Mick Ruiz MD (Electronically Signed) Final Date: 03 Oct 2023 06:54
[2023-10-03] MEDS ORDERED: HEPARIN SODIUM,PORCINE 10,000 UNIT in SODIUM CHLORIDE 0.9% 1,000 ML IRRIGATION PRN (07:00)
[2023-10-03] MEDS ORDERED: HEPARIN SODIUM,PORCINE (1 ML) 2,500 UNIT in SODIUM CHLORIDE 0.9% 250 ML IRRIGATION PRN (07:00)
--- NOTE | 2023-10-03 07:08 | CA ---
Lexiscan Nuclear Stress Test Report Name: Pankaj Calvin Exam Date: 10/02/2023 10:22 Exam Location: [place] Stress Ht (in): 72 Wt (lb): 318 BSA: 2.59 Ordering Phys: May Long Referring Phys: MICK RUIZ,, Technologist: RENETTA,, Age: 67 Gender: M : 1955 Procedure CPT: Indications: Reflex order-Stress test ICD-10 Codes: Patient History: Medications: Meds past 24 hrs: Pretest Chest Pain: STRESS TEST Lexiscan Protocol Exercise Duration (min:sec): 02:[address] Depressions (mm): Angina Score: Capone Score: Resting HR (bpm): 58 Peak HR (bpm): 86 Resting BP (mmHg): 135 / 75 Peak BP (mmHg): 148 / 82 MPHR: 153 Target HR: 130 % MPHR: 56 METS: 1.0 Total Dose: Peak Dose: Atropine: Double Product: 85001 BP Response: Stress Termination: Infusion complete Stress Symptoms: Dyspnea Stress Summary: ECG ANALYSIS Resting ECG: Stress ECG: CONCLUSIONS Nondiagnostic electrocardiogram stress test Dr. Mick Ruiz MD (Electronically Signed) Final Date: 03 Oct 2023 07:07
--- NOTE | 2023-10-03 08:22 | P.PN ---
Subjective Progress Note Date: 10/03/23 Consult reason: chest pain History of present illness: History of present illness: This is a 67-year-old male patient of Dr. EN Sweet with past medical history of coronary artery disease status post bypass grafting, hypertension, hyperlipidemia, diabetes mellitus, obesity. We have been asked to evaluate the patient for chest pain. Patient states that he developed chest pain what he thought was more like indigestion along with shortness of breath and had cold sweats. He also had some dizziness with this. He states that it started after he was cooking dinner and lasted about 1 to 2 minutes and kept returning. He did try to take 1 nitroglycerin. He states he did have some shoulder pain bilaterally. He denies smoking. Patient is seen today in the emergency center waiting for bed on the observation unit. Magnesium and potassium were replaced in the emergency center. EKG sinus rhythm with no acute ST changes. Chest x-ray: No acute findings CBC, INR within normal limits. Troponin negative x 3. Potassium 3.3, magnesium 1.3. Influenza A, influenza B, RSV, COVID-19 not detected. Home cardiac medications: Aspirin 325 mg at bedtime, Jardiance 10 mg daily, Vasotec 2.5 mg daily, Lasix 40 mg daily, Imdur 60 mg daily, metolazone 2.5 mg d aily, Lopressor 50 mg twice daily, omega-3 1 capsule at bedtime, potassium chloride 10 mill equivalents daily, simvastatin 20 mg at bedtime. Cardiac catheterization in 12/22/2001 revealed normal LV systolic function, high- grade ostial LAD with a fairly decent distal vessel. Circumflex is large olivia uzair. No significant stenosis. RCA none dominant vessel. Cardiovascular surgery 12/2001 CABG with HALL to LAD. Echocardiogram performed 07/12/2022 in the office revealed EF 50 to 55%. Mild mitral regurgitation. Mild tricuspid regurgitation. Normal pulmonary artery systolic pressure 32 mmHg. Lexiscan Cardiolite stress test performed 07/12/2022 revealed inconclusive Lexiscan stress test by EKG criteria due to resting EKG changes. Abnormal MPI with distal anterior apical fixed defect with minimal hypokinesia and preserved EF but no evidence of any significant stress-induced ischemia. 10/02 Yesterday, patient underwent Lexiscan stress test that came back abnormal with tiny areas of stress-induced reversible ischemia in the apex. Patient is going for cardiac catheterization with Dr. EN Sweet today. Echocardiogram reveals normal LV systolic function. Poorly visualized intracardiac valves. Physical examination: Gen: This is a morbidly obese 67-year-old male in no acute distress. VS: reviewed HEENT: Head is atraumatic, normocephalic. Pupils equal, round. Sclerae is anicteric. LUNGS: Mild expiratory wheeze. No intercostal retractions. HEART: Regular rate and rhythm. No murmur. EXTREMITIES: No pedal edema. No calf tenderness. NEUROLOGICAL: Patient is awake, alert and oriented x3. Assessment: Atypical chest pain, acute coronary syndrome ruled out Electrolyte abnormalities with hypomagnesemia and hypokalemia status post replacement History of coronary artery disease with previous CABG HALL to LAD Hypertension Hyperlipidemia Diabetes mellitus Morbid obesity Plan: Continue patient's home cardiac medications Schedule patient for cardiac catheterization today with Dr. EN Sweet Further recommendations as patient progresses. Nurse practitioner note has been reviewed, I agree with documented findings and plan of care. Patient was seen and examined. Objective - Vital Signs Vital signs: Vital Signs Temp 98.4 F 10/03/23 02:16 Pulse 74 10/03/23 02:16 Resp 15 10/03/23 02:16 BP 129/72 10/03/23 02:16 Pulse Ox 93 L 10/03/23 02:16 FiO2 Intake & Output 10/02/23 10/03/23 10/03/23 18:59 06:59 18:59 Output Total 700 Balance -700 Weight 144.242 kg Output: Urine 700 Other: # Voids 1 - Labs CBC & Chem 7: 10/01/23 22:45 10/01/23 22:45 Labs: Abnormal Lab Results - Last 24 Hours (Table) 10/03/23 Range/Units 06:47 POC Glucose (mg/dL) 142 H (70-110) mg/dL
[2023-10-03 08:46] LABS: Basophils # (A) 0.05 X 10*3/uL (0.00-0.10); Basophils % (A) 0.6 %; Eosinophils # (A) 0.39 X 10*3/uL (0.04-0.35); Eosinophils % (A) 4.9 %; HCT 45.7 % (39.6-50.0); HGB 14.7 g/dL (13.0-17.0); Lymphocytes # (A) 2.08 X 10*3/uL (0.90-5.00); Lymphocytes % (A) 26.3 %; MCH 30.5 pg (27.0-32.0); MCHC 32.2 g/dL (32.0-37.0); MCV 94.8 FL (80.0-97.0); Mean Platelet Volume 10.7 FL (9.5-12.2); Monocytes % (A) 10.1 %; NRBC Per 100 WBC 0 X 10*3/uL (0.00-0.01); Neutrophils # (A) 4.58 X 10*3/uL (1.80-7.70); Platelet Count 222 X 10*3/uL (140-440); RBC 4.82 X 10*6/uL (4.40-5.60); RDW 13.1 % (11.5-14.5); WBC 7.91 X 10*3/uL (4.50-10.00)
[2023-10-03 08:57] LABS: ALT 27 U/L (10-49); AST 25 U/L (14-35); Albumin 4.3 g/dL (3.8-4.9); Albumin/Globulin Ratio 1.59 Ratio (1.60-3.17); Alkaline Phosphatase 74 U/L (41-126); BUN/Creat Ratio 21.12 Ratio (12.00-20.00); Blood Urea Nitrogen 16.9 mg/dL (9.0-27.0); Calcium 9.4 mg/dL (8.7-10.3); Carbon Dioxide 37.7 mmol/L (21.6-31.8); Chloride 92 mmol/L (96-109); Globulin 2.7 g/dL (1.6-3.3); Glucose 136 mg/dL (70-110); Potassium 3.7 mmol/L (3.5-5.5); Sodium 141 mmol/L (135-145); Total Bilirubin 1.1 mg/dL (0.3-1.2)
[2023-10-03] MEDS ORDERED: LIDOCAINE 1% INJ 10MG/ML (20 ML MDV) ONE (10:10)
[2023-10-03] MEDS: SODIUM CHLORIDE 0.9% 1,000 ML IV ONE (10:40)
[2023-10-03] MEDS: MIDAZOLAM 2 MG/2 ML VIAL IVP ONE (11:05)
[2023-10-03] MEDS ORDERED: fentaNYL (PF) 50 MCG/ML 2 ML AMP ONE (11:08)
[2023-10-03] MEDS: LIDOCAINE 1% INJ 10MG/ML (20 ML MDV) SQ ONE (11:08)
[2023-10-03] MEDS: NITROGLYCERIN 1000MCG/10ML SYRINGE INTRACORON ONE (11:19)
[2023-10-03] MEDS: IOPAMIDOL-370 100ML BTL INJ ONE (11:31)
[2023-10-03] MEDS ORDERED: RX INFO: IV CONTRAST WAS GIVEN 1 EACH MISC MISCELLANE PRN (11:36)
--- NOTE | 2023-10-03 11:52 | P.CARDCATH ---
Date of Procedure: 10/03/23 Description of Procedure: History: Patient was referred for cardiac catheterization to evaluate for progression of CAD. This gentleman has hypertension hypercholesterolemia obesity type 2 diabetes mellitus on oral agents. In 2001 he had a non-ST elevation OH involving the ostial LAD and went on to have a single-vessel bypass with a HALL to LAD because the lesion was located right at the ostium involving the distal left main according to the report. Since then he has done well. His stress test always revealed mild distal anteroapical hypokinesia with predominantly a small fixed defect but a recent stress test on this hospitalization suggested a reversible defect and he was therefore advised to cardiac cath after due discussion regarding risks benefits and options. Procedure Details: The risks, benefits, complications, treatment options, and expected outcomes were discussed with the patient. The patient and/or family concurred with the proposed plan, giving informed consent. Patient was brought to the component lab tech after IV hydration was begun and oral premedication was given. Patient was further sedated with midazolam. Patient was prepped and draped in the usual manner. Under strict aseptic precautions and local anesthesia a 6 Colombian introducer was placed in the right femoral artery using micropuncture needle technique. A 6 Colombian introducer was placed. Coronary angiography was performed with a standard JL 4 diagnostic catheter for the left coronary, and notable catheter for the right coronary and the same catheter was used to check the HALL graft. A pigtail catheter was used to check LV pressures. LV gram was not performed. The sheath was sutured and patient was sent to the esu to be pulled manually and then FemoStop to be applied after adequate hemostasis. Results were then discussed with the patient as well as his . We will pursue medical therapy with risk factor modification. Patient tolerated procedure well without complication. He was hospitalized with chest pain and negative troponins but abnormal stress test Moderate conscious sedation time was 25 minutes. Patient was administered Versed. Patient's oxygen saturation hemodynamics and EKG were monitored closely. Findings: Hemodynamics: The left ventricle end-diastolic pressure was 12 to 13 mmHg without any gradient across aortic valve. Left Main: Short patent vessel with no significant disease bifurcates into LAD and circumflex LAD: This vessel is totally occluded in the midportion after the origin of the septal and diagonal branch. The septal branches of fair caliber diagonal branches also have a decent caliber and seems to supply a limited amount of myocardium. The mid LAD is occluded after the septal and a second diagonal branch. CIRC: This is a dominant vessel no significant disease it gives off a good sized obtuse marginal branch that bifurcates into 2 additional branches and distally it gives off a PDA and PLV branches both of which have only minor irregularities no significant disease. Circumflex is therefore dominant with no significant disease other than minor irregularities. RCA: Nondominant vessel fair caliber and distribution minor irregularities no more than 30% narrowing. Distally it continues as a single branch in the PLB distribution of small caliber and distribution. There are minor irregularities of up to 30% but no significant disease but distal branches have diffuse disease SVG(s): SYLVIE: The left internal mammary artery graft is anastomosed to the LAD in the midportion . I gave intracoronary nitroglycerin and noted that the anastomosis is free of significant disease. Beyond the anastomosis the LAD appears to be subtotally occluded and diffusely diseased in the distal one fourth. The LAD therefore high is of small caliber with diffuse disease in the distal one fourth and a subtotal occlusion after the insertion of the HALL graft. The graft itself is free of significant disease. LV: Not performed Closure Device: Manual compression and FemoStop Complications: None Estimated Blood Loss: Minimal Impression: This patient has a totally occluded mid LAD, a left dominant system normal filling pressures no gradient no significant disease in the circumflex or the nondominant RCA. HALL to LAD is patent but beyond the insertion site there is diffuse disease with subtotal occlusion of the distal one fourth of LAD. Pre Procedure Diagnosis: CAD with a previous bypass surgery Final Post Procedure Diagnosis: CAD with disease in the bypass graft Recommendation: Continued aggressive medical therapy with risk factor modification with the understanding that he will have ischemia if he pushes himself physically because of distal LAD disease. Explained this in detail to the patient and . Possible discharge in a.m. Complications: None; patient tolerated the procedure well. Disposition: 6 floor- hemodynamically stable. Condition: Stable Discharge Disposition: Discharge patient home in a.m. after hydration and checking a BUN/creatinine in the morning
[2023-10-03] MEDS: SODIUM CHLORIDE 0.9% 1,000 ML IV SCH (12:19)
[2023-10-03] MEDS: ACETAMINOPHEN TAB 325 MG TAB PO PRN (12:20)
--- NOTE | 2023-10-03 15:49 | P.PN ---
Subjective Progress Note Date: 10/03/23 Patient pleasant 61-year-old male came in with complaints of chest pressure-like sensation which felt like mostly indigestion along with some shortness of breath and cold sweats which lasted for few minutes and his pain is in the retrosternal epigastric area lasted for few hours. Patient was eval by cardiology patient did undergo stress test and the recommendation is a stress testing to patient can be discharged. Workup here is as follows EKG did not show any acute ST-T wave changes chest x-ray no significant abnormality troponins are negative, patient has low magnesium and low potassium which were partially replaced. Patient takes metolazone and Lasix patient does have some edema which is mostly nonpitting in bilateral lower extremities he had a normal ejection fraction in the past pulmonary systolic pressures 32 mmHg without significant valvular abnormalities except for some mild regurgitation. 10/03/2023 Patient is seen in follow-up today had an abnormal stress test and is scheduled for cardiac catheterization today with cardiology. Patient was noted to have a totally occluded mid LAD, a left dominant system normal filling pressures with no gradient no significant disease in the circumflex nor the nondominant RCA. HALL to LAD is patent but beyond the insertion site there is a diffuse disease with subtotal occlusion of the distal one fourth of LAD. Patient does have previous history of coronary artery disease with previous bypass surgery recommending to continue with aggressive medical therapy and risk factor modifications. Cardiology recommend monitoring overnight on continued telemetry with possible discharge planning in 24 hours. Patient is currently afebrile with no reports of worsening chest pain or worsening shortness of breath. Patient currently undergoing postoperative catheterization protocol and is lying flat reporting some back pain. Home medications reviewed and resumed and patient will resume diet. Once off bed restrictions, encouraged patient to increase activity as tolerated. Will follow-up on repeat labs in the morning to monitor kidney functions and electrolytes. Review of systems: Constitutional: No reports of fatigue, fever, or chills Cardiovascular: No reports of worsening chest pain or palpitations Respiratory: No reports of worsening shortness of breath or cough GI: No reports of nausea, vomiting, or diarrhea : No reports of dysuria or retention Neurovascular: No reports of weakness or numbness, reports back pain from the bed and laying flat All medications have been reviewed PHYSICAL EXAMINATION: GENERAL: The patient is alert and oriented x3, appears dyspneic lying flat as patient is postop catheterization. Well developed, well nourished. Morbidly obese HEENT: Pupils are round and equally reacting to light. EOMI. No scleral icterus. No conjunctival pallor. Normocephalic, atraumatic. No pharyngeal erythema. No thyromegaly. CARDIOVASCULAR: S1 and S2 muffled PULMONARY: Diminished breath sounds bilaterally otherwise chest is clear to auscultation, no wheezing or crackles. ABDOMEN: Soft, obese, nontender, nondistended, normoactive bowel sounds. No palpable organomegaly. MUSCULOSKELETAL: No joint swelling or deformity. EXTREMITIES: No cyanosis, clubbing, bilateral lower extremity mostly non-pitting pedal edema NEUROLOGICAL: Gross neurological examination did not reveal any focal deficits. SKIN: No rashes. Assessment: -Chest pain, ruled out acute coronary syndrome. Patient had an abnormal stress test underwent cardiac catheterization which was clear although suggestive of significant disease and subtotal occlusion of the distal one fourth of the LAD recommend maximizing medical management and aggressive risk factor modifications -Gastroesophageal reflux disease -Coronary artery disease status post CABG -Bilateral lower extremity edema, patient does not have any pulmonary edema chest x-ray is within normal limits BNP is only 156 patient may have some peripheral venous insufficiency as Lasix is not affecting his kidney he can continue his home dose of diuretics that his Lasix and metolazone but will need potassium to placement on regular basis and basic metabolic profile to be tested as an outpatient. -Hypertension -Hyperlipidemia -Morbid obesity with a BMI of 43.1 -Type 2 diabetes mellitus GI prophylaxis DVT prophylaxis Full code Plan: Patient underwent cardiac catheterization as mentioned previously with cardiology following recommend monitoring overnight with possible discharge planning in the next 24 hours Follow-up with repeat labs in the a.m. to monitor kidney functions and electrolytes closely Patient to resume oral diuretics on discharge with close monitoring outpatient Discussed aggressive risk factor modifications and close outpatient follow-up with cardiology Will refer to pulmonary outpatient for further testing regarding possible sleep apnea Possible discharge in the next 24 hours The impression and plan of care has been dictated by Mary Sethi Nurse Practitioner as directed. Dr. Lamar MD I have performed a history and examination and MDM of this patient, discussed the same with the dictator, and agree with the dictator's assessment and plan as written ,documented as a scribe. Based on total visit time, I have performed more than 50% of the visit. Objective - Vital Signs Vital signs: Vital Signs Temp 97.7 F 10/03/23 07:00 Pulse 61 10/03/23 07:00 Resp 16 10/03/23 07:00 BP 106/64 10/03/23 07:00 Pulse Ox 94 L 10/03/23 07:00 FiO2 Intake & Output 10/02/23 10/03/23 10/03/23 18:59 06:59 18:59 Output Total 700 Balance -700 Weight 144.242 kg Output: Urine 700 Other: # Voids 1 - Labs CBC & Chem 7: 10/03/23 05:55 10/03/23 05:55 Labs: Abnormal Lab Results - Last 24 Hours (Table) 10/03/23 10/03/23 10/03/23 Range/Units 05:55 05:55 06:47 Eosinophils # 0.39 H (0.04-0.35) X 10*3/uL Chloride 92 L (96-109) mmol/L Carbon Dioxide 37.7 H (21.6-31.8) mmol/L BUN/Creatinine Ratio 21.12 H (12.00-20.00) Ratio Glucose 136 H (70-110) mg/dL POC Glucose (mg/dL) 142 H (70-110) mg/dL Albumin/Globulin Ratio 1.59 L (1.60-3.17) Ratio
[2023-10-04 04:44] LABS: Basophils % (A) 0 %; Eosinophils # (A) 0.4 k/uL (0-0.7); Eosinophils % (A) 5 %; HCT 45.6 % (39.0-53.0); Lymphocytes # (A) 1.8 k/uL (1.0-4.8); Lymphocytes % (A) 23 %; MCH 30.7 pg (25.0-35.0); MCHC 32.9 g/dL (31.0-37.0); MCV 93.5 fL (80.0-100.0); Mean Platelet Volume 8.1; Monocytes # (A) 0.6 k/uL (0-1.0); Monocytes % (A) 8 %; Neutrophils % (A) 62 %; Platelet Count 225 k/uL (150-450); RBC 4.88 m/uL (4.30-5.90); RDW 13.3 % (11.5-15.5); WBC 8.1 k/uL (3.8-10.6)
[2023-10-04 05:06] LABS: African American GFR (CKD) >90 (>60 ml/min/1.73 sqM); Anion Gap 3 mmol/L; Blood Urea Nitrogen 16 mg/dL (9-20); Calcium 8.9 mg/dL (8.4-10.2); Carbon Dioxide 39 mmol/L (22-30); Chloride 94 mmol/L (98-107); Glucose 121 mg/dL (74-99); Non-African American GFR(CKD) >90 (>60 ml/min/1.73 sqM); Potassium 3.2 mmol/L (3.5-5.1); Sodium 136 mmol/L (137-145)
[2023-10-04] MEDS: POTASSIUM CHLORIDE ER 20 MEQ TAB.ER PO STA (08:23)
[2023-10-04] MEDS: ASPIRIN 81 MG PO SCH (08:24)
[2023-10-04 08:58] VITALS: BP 143/74; PULSE 58; RESP 17; TEMP 97.8
[2023-10-04] MEDS ORDERED: ASPIRIN 325 MG TAB PO SCH (09:00)
[2023-10-04] MEDS: ONDANSETRON 4 MG/2 ML VIAL IVP PRN (09:02)
--- NOTE | 2023-10-04 10:09 | P.PN ---
Subjective Progress Note Date: 10/04/23 Consult reason: chest pain History of present illness: History of present illness: This is a 67-year-old male patient of Dr. EN Sweet with past medical history of coronary artery disease status post bypass grafting, hypertension, hyperlipidemia, diabetes mellitus, obesity. We have been asked to evaluate the patient for chest pain. Patient states that he developed chest pain what he thought was more like indigestion along with shortness of breath and had cold sweats. He also had some dizziness with this. He states that it started after he was cooking dinner and lasted about 1 to 2 minutes and kept returning. He did try to take 1 nitroglycerin. He states he did have some shoulder pain bilaterally. He denies smoking. Patient is seen today in the emergency center waiting for bed on the observation unit. Magnesium and potassium were replaced in the emergency center. EKG sinus rhythm with no acute ST changes. Chest x-ray: No acute findings CBC, INR within normal limits. Troponin negative x 3. Potassium 3.3, magnesium 1.3. Influenza A, influenza B, RSV, COVID-19 not detected. Home cardiac medications: Aspirin 325 mg at bedtime, Jardiance 10 mg daily, Vasotec 2.5 mg daily, Lasix 40 mg daily, Imdur 60 mg daily, metolazone 2.5 mg d aily, Lopressor 50 mg twice daily, omega-3 1 capsule at bedtime, potassium chloride 10 mill equivalents daily, simvastatin 20 mg at bedtime. Cardiac catheterization in 12/22/2001 revealed normal LV systolic function, high- grade ostial LAD with a fairly decent distal vessel. Circumflex is large olivia uzair. No significant stenosis. RCA none dominant vessel. Cardiovascular surgery 12/2001 CABG with HALL to LAD. Echocardiogram performed 07/12/2022 in the office revealed EF 50 to 55%. Mild mitral regurgitation. Mild tricuspid regurgitation. Normal pulmonary artery systolic pressure 32 mmHg. Lexiscan Cardiolite stress test performed 07/12/2022 revealed inconclusive Lexiscan stress test by EKG criteria due to resting EKG changes. Abnormal MPI with distal anterior apical fixed defect with minimal hypokinesia and preserved EF but no evidence of any significant stress-induced ischemia. 10/02 Yesterday, patient underwent Lexiscan stress test that came back abnormal with tiny areas of stress-induced reversible ischemia in the apex. Patient is going for cardiac catheterization with Dr. EN Sweet today. Echocardiogram reveals normal LV systolic function. Poorly visualized intracardiac valves. 10/03 Yesterday, patient underwent cardiac catheterization with Dr. EN Sweet which revealed totally occluded mid LAD, left dominant system normal filling pressures, no gradient, no significant disease in the circumflex or the nondominant RCA. HALL to LAD is patent but beyond the insertion site there is diffuse disease with subtotal occlusion of the distal one fourth of the LAD. Recommendations to continue aggressive medical therapy with risk factor modification with the understanding that patient will have ischemia if he pushes himself physically because of the distal LAD disease. Blood pressure 121/62, heart rate 62, pulse ox 96% on room air. Repeat blood work reveals CBC normal. Potassium 3.2, creatinine 0.66. Physical examination: Gen: This is a morbidly obese 67-year-old male in no acute distress. VS: reviewed HEENT: Head is atraumatic, normocephalic. Pupils equal, round. Sclerae is anicteric. LUNGS: Mild expiratory wheeze. No intercostal retractions. HEART: Regular rate and rhythm. No murmur. EXTREMITIES: No pedal edema. No calf tenderness. NEUROLOGICAL: Patient is awake, alert and oriented x3. Assessment: Atypical chest pain, acute coronary syndrome ruled out Electrolyte abnormalities with hypomagnesemia and hypokalemia status post replacement History of coronary artery disease with previous CABG HALL to LAD Hypertension Hyperlipidemia Diabetes mellitus Morbid obesity Plan: Continue current cardiac medications Patient is cleared for discharge and may follow-up in the office with Dr. EN Sweet in 1 to 2 weeks. Nurse practitioner note has been reviewed, I agree with documented findings and plan of care. Patient was seen and examined. Objective - Vital Signs Vital signs: Vital Signs Temp 98.7 F 10/04/23 02:00 Pulse 62 10/04/23 02:00 Resp 16 10/04/23 02:00 BP 121/62 10/04/23 02:00 Pulse Ox 96 10/04/23 02:00 FiO2 Intake & Output 10/03/23 10/04/23 10/04/23 18:59 06:59 18:59 Intake Total 169 Balance 169 Intake: IV 51 Invasive Line 1 1 Oral 118 Other: # Voids 1 2 - Labs CBC & Chem 7: 10/04/23 04:17 10/04/23 04:17 Labs: Abnormal Lab Results - Last 24 Hours (Table) 10/03/23 10/03/23 10/04/23 Range/Units 05:55 05:55 04:17 Eosinophils # 0.39 H (0.04-0.35) X 10*3/uL Sodium 136 L (137-145) mmol/L Potassium 3.2 L (3.5-5.1) mmol/L Chloride 92 L 94 L (96-109) mmol/L Carbon Dioxide 37.7 H 39 H (21.6-31.8) mmol/L BUN/Creatinine Ratio 21.12 H (12.00-20.00) Ratio Glucose 136 H 121 H (70-110) mg/dL Albumin/Globulin Ratio 1.59 L (1.60-3.17) Ratio
[2023-10-04] MEDS: RANOLAZINE 500 MG TAB.ER.12H PO SCH (10:42)
--- NOTE | 2023-10-07 12:59 | P.DS ---
Providers Date of admission: 10/02/23 00:23 Expected date of discharge: 10/04/23 Attending physician: Willy York Consults: 10/02/23 00:22 Consult Physician Routine Consulting Provider: [facility] Consult Reason/Comments: chest pain Do you want consulting provider notified?: Yes Primary care physician: Lety Gallardo MD Hospital Course: Final diagnosis -Chest pain, ruled out acute coronary syndrome. Patient had an abnormal stress test underwent cardiac catheterization which was clear although suggestive of significant disease and subtotal occlusion of the distal one fourth of the LAD recommend maximizing medical management and aggressive risk factor modifications -Gastroesophageal reflux disease -Coronary artery disease status post CABG -Bilateral lower extremity edema, patient does not have any pulmonary edema chest x-ray is within normal limits BNP is only 156 patient may have some peripheral venous insufficiency as Lasix is not affecting his kidney he can continue his home dose of diuretics that his Lasix and metolazone but will need potassium to placement on regular basis and basic metabolic profile to be tested as an outpatient. -Hypertension -Hyperlipidemia -Morbid obesity with a BMI of 43.1 -Type 2 diabetes mellitus GI prophylaxis DVT prophylaxis Full code Discharge disposition Patient is being discharged in a stable condition with guarded prognosis to [facility]. Patient will follow-up with Dr. Dean in the outpatient setting upon discharge. Patient is to continue with current medications and close outpatient follow-up with cardiology as scheduled. Total time taken is greater than 35 minutes. Hospital course This is a 67-year-old male who was recently admitted with chest pain, ruled out ACS along with some bilateral lower extremity edema being closely monitored with cardiology following. Patient underwent stress testing which was abnormal recommending cardiac catheterization and was noted to have significant disease and subtotal occlusion of the distal one fourth of the LAD and recommending maximizing medical management. Strongly suggest aggressive risk factor modifications and close outpatient follow-up. Patient has been cleared by cardiology for discharge home. Please refer to cardiology notes for further HPI. Patient reports to feeling improved and would like to go home. Recommend repeat labs in the next few days to monitor BMP. Currently no reports of chest pain, no worsening shortness of breath, or palpitations. Patient is afebrile. No reports of nausea or vomiting and patient is tolerating diet. Patient will be discharged home today. High risk for readmission given patient's significant comorbidities. Physical exam: Gen: This is a 67-year-old male who is awake, alert and oriented x 3, well- developed, well-nourished, elderly appearing, morbidly obese HEENT: Head is atraumatic, normocephalic. Pupils equal, round. Sclerae is anicteric. NECK: Supple. No JVD. No lymphadenopathy. No thyromegaly. LUNGS: Diminished breath sounds bilaterally with some scattered rhonchi honchi. No intercostal retractions. HEART: S1, S2 are muffled ABDOMEN: Soft. Obese bowel sounds are present. No masses. No tenderness. EXTREMITIES: No pedal edema. No calf tenderness. Generalized lower extremity edema noted, improved NEUROLOGICAL: Patient is awake, alert and oriented x3. Cranial nerves 2 through 12 are grossly intact. Please refer to medication reconciliation sheet for a list of medications. The impression and plan of care has been dictated by Mary Sethi Nurse Prac titioner as directed. Dr. Lamar MD I have performed a history and examination and MDM of this patient, discussed the same with the dictator, and agree with the dictator's assessment and plan as written ,documented as a scribe. Based on total visit time, I have performed more than 50% of the visit. Patient Condition at Discharge: Fair Plan - Discharge Summary New Discharge Prescriptions: New Pantoprazole Sodium [Protonix] 20 mg PO AC-BID #14 tab Continue Cetirizine HCl [Zyrtec] 10 mg PO BID [place]-3/Dha/Epa/Fish Oil [Fish Oil 1,000 mg Softgel] 1 cap PO HS Aspirin 325 mg PO HS Metoprolol Tartrate [Lopressor] 50 mg PO BID Enalapril [Vasotec] 2.5 mg PO DAILY Multivit-Min/FA/Lycopen/Lutein [Centrum Silver Tablet] 1 tab PO HS Cyanocobalamin (Vitamin B-12) [Vitamin B-12] 1,000 mcg PO DAILY metFORMIN HCL [Glucophage] 1,000 mg PO BID PARoxetine HCL [Paxil] 10 mg PO HS metOLazone 2.5 mg PO DAILY Simvastatin [Zocor] 20 mg PO HS Isosorbide Mononitrate ER [Imdur] 60 mg PO DAILY Furosemide [Lasix] 40 mg PO DAILY Empagliflozin [Jardiance] 10 mg PO DAILY Fluticasone Nasal [place] [Flonase Nasal [place]] 1 - 2 spray EA NOSTRIL DAILY PRN PRN Reason: Congestion Albuterol Inhaler [Ventolin Hfa Inhaler] 1 - 2 puff INHALATION RT-Q6H PRN PRN Reason: Shortness Of Breath Changed Potassium Chloride ER [K-Dur 10] 20 meq PO DAILY #60 tab Discharge Medication List Albuterol Inhaler [Ventolin Hfa Inhaler] 1 - 2 puff INHALATION RT-Q6H PRN 10/02/23 [History] Aspirin 325 mg PO HS 10/02/23 [History] Cetirizine HCl [Zyrtec] 10 mg PO BID 10/02/23 [History] Cyanocobalamin (Vitamin B-12) [Vitamin B-12] 1,000 mcg PO DAILY 10/02/23 [History] Empagliflozin [Jardiance] 10 mg PO DAILY 10/02/23 [History] Enalapril [Vasotec] 2.5 mg PO DAILY 10/02/23 [History] Fluticasone Nasal [place] [Flonase Nasal [place]] 1 - 2 spray EA NOSTRIL DAILY PRN 10/02/23 [History] Furosemide [Lasix] 40 mg PO DAILY 10/02/23 [History] Isosorbide Mononitrate ER [Imdur] 60 mg PO DAILY 10/02/23 [History] Metoprolol Tartrate [Lopressor] 50 mg PO BID 10/02/23 [History] Multivit-Min/FA/Lycopen/Lutein [Centrum Silver Tablet] 1 tab PO HS 10/02/23 [History] [place]-3/Dha/Epa/Fish Oil [Fish Oil 1,000 mg Softgel] 1 cap PO HS 10/02/23 [H istory] PARoxetine HCL [Paxil] 10 mg PO HS 10/02/23 [History] Pantoprazole Sodium [Protonix] 20 mg PO AC-BID #14 tab 10/02/23 [Rx] Potassium Chloride ER [K-Dur 10] 20 meq PO DAILY #60 tab 10/02/23 [Rx] Simvastatin [Zocor] 20 mg PO HS 10/02/23 [History] metFORMIN HCL [Glucophage] 1,000 mg PO BID 10/02/23 [History] metOLazone 2.5 mg PO DAILY 10/02/23 [History] Follow up Appointment(s)/Referral(s): Craig Sweet MD [STAFF PHYSICIAN] - 10/14/23 2:30 pm Lety Gallardo MD [Primary Care Provider] - 3 Days Ambulatory/Diagnostic Orders: Basic Metabolic Panel [LAB.AMB] Time Frame: 3 Days, Location: None Selected Magnesium [LAB.AMB] Time Frame: 3 Days, Location: None Selected Patient Instructions/Handouts: *Surgery [facility] - After Heart Catheterization - Incident Handler Instructions Activity/Diet/Wound Care/Special Instructions: Activity limited until follow-up Follow-up with primary care provider on discharge Follow-up with cardiology outpatient NO HEAVY LIFTING OR BENDING REPEATEDLY AT THE HIPS FOR 3 DAYS NO SOAKING IN TUBS, POOLS OR SPAS YOU MAY SHOWER WITH GENTLE CLEANSING OF RIGHT GROIN PUNCTURE SITE IF YOU NOTICE ANY BLEEDING OR SWELLING FROM PUNCTURE, HOLD SITE WITH FIRM FIST AND GO TO NEAREST ER FOLLOW UP IN THE OFFICE FOR A SITE CHECK SCHEDULED Discharge Disposition: HOME SELF-CARE
== END 2023-10-04 12:43 | disposition home or self-care (01) | DRG 287 ==
LOC: EC 22:28 → 6NMEDSUR 10-02 00:23 → OBSVTOIN 10-03 09:47
PROVIDERS: ADMIT Hospitalist; ATTEND Hospitalist
PROC: 4A023N7 Measurement of Cardiac Sampling and Pressure, Left Heart, Percutaneous Approach (ICD-10-PCS; principal; 2023-10-03 10:30)
PROC: B2111ZZ Fluoroscopy of Multiple Coronary Arteries using Low Osmolar Contrast (ICD-10-PCS; principal; 2023-10-03 10:30)
PROC: B2131ZZ Fluoroscopy of Multiple Coronary Artery Bypass Grafts using Low Osmolar Contrast (ICD-10-PCS; principal; 2023-10-03 10:30)
DX: I25.10 Atherosclerotic heart disease of native coronary artery without angina pectoris (principal); J96.11 Chronic respiratory failure with hypoxia; Z68.41 Body mass index [BMI] 40.0-44.9, adult; I50.32 Chronic diastolic (congestive) heart failure; I25.82 Chronic total occlusion of coronary artery; I11.0 Hypertensive heart disease with heart failure; E11.9 Type 2 diabetes mellitus without complications; E66.01 Morbid (severe) obesity due to excess calories; J44.9 Chronic obstructive pulmonary disease, unspecified; E78.00 Pure hypercholesterolemia, unspecified; I87.2 Venous insufficiency (chronic) (peripheral); E83.42 Hypomagnesemia; E87.6 Hypokalemia; K21.9 Gastro-esophageal reflux disease without esophagitis; I25.2 Old myocardial infarction; Z79.82 Long term (current) use of aspirin; Z79.84 Long term (current) use of oral hypoglycemic drugs; Z79.899 Other long term (current) drug therapy; Z95.1 Presence of aortocoronary bypass graft; Z99.81 Dependence on supplemental oxygen
CPT/HCPCS: 36415; 71046; 78452; 80048; 80053; 81003; 83735; 83880; 84484; 85025; 85610; 85730; 87636; 93005; 93017; 93306; 93459; 94760; 96365; 96366; 96372; 96375; 99285